=== PATIENT | male | born 1950 | race Caucasian/White ===

== ENCOUNTER 2019-05-25 14:44 | Outpatient (CLI) | payer MEDICARE ==
--- NOTE | 2019-05-25 16:23 | MRI ---
MRI lumbar spine noncontrast: HISTORY: Low back pain, radiating down the right leg x1 year. COMPARISON: 07/28/2017. FINDINGS: Appropriate T1 marrow signal intensity of the lumbar vertebra. Multilevel Schmorl's nodes are noted. Lumbar spine vertebral body height is maintained. No fracture. Bilateral pars defects at L5 with associated anterolisthesis of L5 upon S1. Currently, there is 8 mm of anterolisthesis. The degree of anterolisthesis is unchanged. Appropriate signal intensity of the paraspinal muscles. Conus medullaris terminates at the inferior aspect of T12. Appropriate signal intensity of the solid organs. T12-L1:Adequate disc hydration. No significant central canal stenosis or neural foraminal narrowing. L1-L2:Mild loss of disc space height. Broad-based disc bulge, ligamentum flavum thickening and facet hypertrophy result in moderate central canal stenosis. Mild bilateral foraminal narrowing. Stable central canal stenosis when compared to the previous exam. L2-L3:Mild loss of disc space height. Broad-based disc bulge, ligamentum flavum thickening and facet hypertrophy result in mild to moderate central canal stenosis. Mild to moderate bilateral foraminal narrowing. Compared to the previous examination, there is slight progression in terms of the degree o f central canal stenosis as well the degree of neural foraminal narrowing. L3-L4:Broad-based disc bulge, ligament flavum thickening and facet result in moderate central canal s tenosis. Moderate to severe right and moderate left foraminal narrowing. The overall degree of central canal stenosis and foraminal narrowing is similar to the previous exam. L4-L5:Adequate disc hydration. Generalized disc bulge, ligamentum flavum thickening and facet hypertr ophy without significant central canal stenosis. Mild to moderate bilateral foraminal narrowing. L5-S1:Severe loss of disc space height. Broad-based disc bulge without significant central canal sten osis. There is left greater than right facet hypertrophy. Mild to moderate central canal stenosis, in part due to anterolisthesis. Moderate to severe right and left neural foraminal narrowing, unchang ed. IMPRESSION: Essentially stable degenerative changes of the lumbar spine as described above. Slight progression of degenerative changes at L2-L3. Transcribed Date/Time: 05/25/2019 4:56 PM
== END 2019-05-25 14:45 | disposition home or self-care (01) ==
LOC: SCSMRI 14:44
PROVIDERS: ATTEND Orthopaedic Surgery
DX: M47.26 Other spondylosis with radiculopathy, lumbar region (principal)
CPT/HCPCS: 72148

== ENCOUNTER 2022-07-07 08:20 | Outpatient (CLI) | payer MEDICARE | END 2022-07-07 08:21 | disposition home or self-care (01) | LOC: TBSIIMAG 08:20 | PROVIDERS: ATTEND Neurological Surgery | DX: M43.16 Spondylolisthesis, lumbar region (principal); Z98.1 Arthrodesis status | CPT/HCPCS: 72100 ==

== ENCOUNTER 2022-09-02 13:46 | Outpatient (CLI) | payer MEDICARE | END 2022-09-02 13:47 | disposition home or self-care (01) | LOC: TBSIIMAG 13:46 | PROVIDERS: ATTEND Neurological Surgery | DX: M43.16 Spondylolisthesis, lumbar region (principal); M47.816 Spondylosis without myelopathy or radiculopathy, lumbar region; Z98.890 Other specified postprocedural states | CPT/HCPCS: 72100 ==

== ENCOUNTER 2024-04-27 07:58 | Outpatient (CLI) | payer MEDICARE | END 2024-04-27 07:59 | disposition home or self-care (01) | LOC: NM 07:58 | PROVIDERS: ATTEND Psychiatry & Neurology Neurology | DX: R29.818 Other symptoms and signs involving the nervous system (principal) | CPT/HCPCS: 78803; A9584 ×2 ==